=== PATIENT | female | born 1970 | race Two or more races ===

== ENCOUNTER 2016-10-12 17:53 | Emergency (ER) | payer OTHER ==
[~2016-10-12] VITALS: Ht 162.6 cm; Wt 63.5 kg
--- NOTE | 2016-10-12 18:50 | Emergency Room Report ---
History of Present Illness General Chief Complaint: Vaginal Source: Patient Present Illness HPI The patient is a 46-year-old female presenting for one week of vaginal itching and foul odor. Patient describes this as fishy. She does admit to a burning pain of the external vagina described as a 4-10. Pain does not radiate. She states that she has had bacterial vaginosis in the past and this feels similar. She denies any discharge, dysuria, hematuria, increased urinary frequency, flank pain, nausea, vomiting, fever, chills Allergies: Coded Allergies: No Known Allergies (Unverified , 10/12/16) Patient History Past Medical History: see triage record Pertinent Family History: none Last Menstrual Period: 10/02/16 Now: No Reviewed Nursing Documentation: PMH: Agreed, PSxH: Agreed Nursing Documentation-PMH Past Medical History: No Stated History Review of Systems All Other Systems: negative except mentioned in HPI Physical Exam Vital Signs Date Time Temp Pulse Resp B/P Pulse Ox O2 Delivery O2 Flow Rate FiO2 10/12/16 18:28 97.9 76 16 150/90 96 Room Air Sp02 EP Interpretation: reviewed, normal General Appearance: no apparent distress, alert, GCS 15, non-toxic Head: normocephalic, atraumatic Eyes: bilateral eye PERRL, bilateral eye normal inspection ENT: hearing grossly normal, normal pharynx, no angioedema, normal voice Gastrointestinal: normal bowel sounds, non tender, soft, non-distended, no guarding, no rebound Genitourinary: normal inspection, no CVA tenderness Musculoskeletal: back normal, gait/station normal, normal range of motion, non- tender Neurologic: alert, oriented x3, responsive, motor strength/tone normal, sensory intact, speech normal Psychiatric: judgement/insight normal, memory normal, mood/affect normal, no suicidal/homicidal ideation Skin: normal color, no rash, warm/dry, well hydrated Lymphatic: no adenopathy Medical Decision Making PA Attestation Dr. Jensen is my supervising physician. Patient management was discussed with my supervising physician Diagnostic Impression: Primary Impression: Bacterial vaginosis ER Course The patient is a 46-year-old female presenting for one week of vaginal itching and foul odor. Differential diagnosis considered but not limited to: UTI, BV, pyelonephritis, PID, PE: Vitals WNL. NAD. Abdomen: Normal appearance. Non distended. No ecchymosis. Normal BS. Non TTP. No McBurney point tenderness. No guarding. 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 The patient needs a referral to see [facility] by PMD. She will followup. The patient will be treated for BV and is discharged home. ER precautions are given Laboratory Tests Test 10/12/16 18:30 Urine Color Pale yellow Urine Appearance Clear Urine pH 6 (4.5-8.0) Urine Specific [place] 1.015 (1.005-1.035) Urine Protein Negative (NEGATIVE) Urine Glucose (UA) Negative (NEGATIVE) Urine Ketones Negative (NEGATIVE) Urine Occult Blood 3+ (NEGATIVE) H Urine Nitrite Negative (NEGATIVE) Urine Bilirubin Negative (NEGATIVE) Urine Urobilinogen Normal MG/DL (0.0-1.0) Urine Leukocyte Esterase Negative (NEGATIVE) Urine RBC 2-4 /HPF (0 - 2) H Urine WBC 0-2 /HPF (0 - 2) Urine Squamous Epithelial Cells Few /LPF (NONE/OCC) Urine Bacteria Few /HPF (NONE) Urine HCG, Qualitative Negative Lab Results Impression UA not consistent with UTI. Neg preg Last Vital Signs Date Time Temp Pulse Resp B/P Pulse Ox O2 Delivery O2 Flow Rate FiO2 10/12/16 18:28 97.9 76 16 150/90 96 Room Air Status: improved Disposition: HOME, SELF-CARE Condition: Improved Scripts Metronidazole* (FLAGYL*) 500 Mg Tablet 500 MG ORAL BID, #14 TAB 0 Refills Prov: JUVE HUMMEL 10/12/16 JUVE HUMMEL October 12, 2016 18:50
[2016-10-12 19:09] LABS: APPEARANCE,URINE CLEAR; KETONES,URINE NEGATIVE (NEGATIVE); LEUKOCYTE ESTERASE ,URINE NEGATIVE (NEGATIVE); NITRITE,URINE NEGATIVE (NEGATIVE); PH,URINE 6 (4.5-8.0); PROTEIN,URINE NEGATIVE (NEGATIVE); UROBILINOGEN,URINE NORMAL MG/DL (0.0-1.0)
[2016-10-12 19:14] LABS: BACTERIA,URINE FEW /HPF; SQUAMOUS EPITHELIAL CELL,UR FEW /LPF (NONE/OCC); WBC,URINE 0-2 /HPF (0 - 2)
[2016-10-12] MEDS ORDERED: METRONIDAZOLE500 MG ORAL (19:50)
[2016-10-12 19:55] VITALS: BP 134/84
== END 2016-10-12 19:55 | disposition home or self-care (01) ==
LOC: EMR 18:55
DX: N76.0 Acute vaginitis (principal)
CPT/HCPCS: 81003; 81025; 99283

== ENCOUNTER 2018-05-01 01:09 | Emergency (ER) | payer MEDICAID, OTHER ==
[~2018-05-01] VITALS: Ht 157.5 cm; Wt 68.0 kg
[~2018-05-01 01:09] MED LIST: METRONIDAZOLE500 MG ORAL
[2018-05-01] MEDS ORDERED: NKM (01:16)
[2018-05-01 01:20] VITALS: BP 134/79
[2018-05-01] MEDS ORDERED: NAPROXEN375 M2 ORAL (01:54)
--- NOTE | 2018-05-01 01:54 | Emergency Room Report ---
History of Present Illness General Chief Complaint: Neck Pain Source: Patient Present Illness HPI 48F c/o about one day neck stiffness. She thinks perhaps relating to sleeping/ pillow. She has had similar in the past but this is somewhat worse. Tried heating pad, hot shower. Still painful. No other problem, specifically: no sore throat, no chest pain, no sob, no fever, swallowing normally. PMH: none Meds: calcium vitamins Allergies: Coded Allergies: No Known Allergies (Unverified , 10/12/16) Patient History Last Menstrual Period: apr 06 Now: No Nursing Documentation-PMH Past Medical History: No Stated History Review of Systems Constitutional: Reports: no symptoms Eye: Reports: no symptoms ENT: Reports: no symptoms Respiratory: Reports: no symptoms Cardiovascular: Reports: no symptoms Gastrointestinal: Reports: no symptoms Genitourinary: Reports: no symptoms Musculoskeletal: Reports: muscle stiffness Skin: Reports: no symptoms Psychiatric: Reports: no symptoms Neurological: Reports: no symptoms Endocrine: Reports: no symptoms Hematologic/Lymphatic: Reports: no symptoms Allergic: Reports: no symptoms All Other Systems: negative except mentioned in HPI Physical Exam Vital Signs Date Time Temp Pulse Resp B/P (MAP) Pulse Ox O2 Delivery O2 Flow Rate FiO2 05/01/18 01:12 98.2 89 18 134/79 91 Room Air Sp02 EP Interpretation: reviewed, normal General Appearance: normal inspection, well appearing, no apparent distress, alert, GCS 15, non-toxic Head: normocephalic, atraumatic Eyes: bilateral eye normal inspection, bilateral eye PERRL, bilateral eye EOMI ENT: normal ENT inspection, hearing grossly normal, normal pharynx, no angioedema, normal voice, moist mucus membranes Neck: normal inspection, supple, no meningismus, no bony tend, other - holding head stiffly like torticollis Respiratory: normal inspection, lungs clear, normal breath sounds, no rhonchi, no respiratory distress, no retraction, no accessory muscle use, no wheezing Cardiovascular #1: normal inspection, regular rate, rhythm, no edema Gastrointestinal: normal inspection, normal bowel sounds, non tender, soft, no mass, non-distended Musculoskeletal: gait/station normal, normal range of motion Neurologic: normal inspection, alert, oriented x3, responsive, motor strength/ tone normal Psychiatric: normal inspection, judgement/insight normal, memory normal Suicide Risk Assessment: Suicidal Ideation: No Had intent to initiate attempt: No Pt's plan for suicide attempt: No Has means to complete attempt: No Skin: normal inspection, normal color, no rash, warm/dry Medical Decision Making Diagnostic Impression: Primary Impression: Torticollis, acute Last Vital Signs Date Time Temp Pulse Resp B/P (MAP) Pulse Ox O2 Delivery O2 Flow Rate FiO2 05/01/18 01:20 98.2 80 18 134/79 91 Room Air Status: improved Disposition: HOME, SELF-CARE Condition: Improved Scripts Naproxen* (NAPROXEN*) 375 Mg Tablet. 375 MG ORAL TWICE A DAY for 10 Days, #20 TAB Prov: Rm Cross M.D. 05/01/18 Referrals: NOT CHOSEN [facility]/,REFERRING (PCP) Patient Instructions: Acute Torticollis Rm Cross M.D. May 01, 2018 01:54
[2018-05-01] MEDS ORDERED: Ketorolac 60mg Inj IM ONE (02:00)
[2018-05-01] MEDS ORDERED: Acetaminophen 500mg (ES) tab ORAL ONE (02:00)
[2018-05-01 02:19] VITALS: BP 134/79
== END 2018-05-01 02:21 | disposition home or self-care (01) ==
LOC: EMR 01:37
DX: M43.6 Torticollis (principal)
CPT/HCPCS: 96372; 99283

== ENCOUNTER 2019-07-10 18:55 | Emergency (ER) | payer MEDICAID ==
[~2019-07-10] VITALS: Ht 167.6 cm; Wt 70.3 kg
[~2019-07-10 18:55] MED LIST changes: +NAPROXEN375 M2 ORAL; +NKM
[2019-07-10 19:30] VITALS: BP 145/93
--- NOTE | 2019-07-10 19:30 | NUR ---
ED Nurse Note: Pt ambulated to ED from [place] c/o abdominal pain x3 days, "twisting", N denies V/D, denies fever, VSS
--- NOTE | 2019-07-10 19:49 | Emergency Room Report ---
History of Present Illness General Chief Complaint: Abdominal Pain Source: Patient Present Illness HPI 49-year-old female presents with diffuse abdominal pain since last night. Pain is rated 8 out of 10. She took an ibuprofen which did not help. She reports nausea but denies any vomiting, diarrhea, constipation, urinary symptoms, fever , cold symptoms. Patient has not had pain like this before. Denies any surgeries other than . Allergies: Coded Allergies: No Known Allergies (Unverified , 10/12/16) Patient History Past Medical History: see triage record Last Menstrual Period: 06/12/19 Now: No Reviewed Nursing Documentation: PMH: Agreed; PSxH: Agreed Nursing Documentation-PMH Past Medical History: No Stated History Review of Systems All Other Systems: negative except mentioned in HPI Physical Exam Vital Signs Date Time Temp Pulse Resp B/P (MAP) Pulse Ox O2 Delivery O2 Flow Rate FiO2 07/10/19 19:03 98.1 80 19 145/93 (110) 100 Room Air Sp02 EP Interpretation: reviewed, normal General Appearance: normal inspection, well appearing, no apparent distress, alert, GCS 15, non-toxic Respiratory: chest non-tender, lungs clear, normal breath sounds, no respiratory distress Cardiovascular #1: normal peripheral pulses, regular rate, rhythm Gastrointestinal: normal inspection, normal bowel sounds, soft, no mass, no organomegaly, no guarding, no rebound, other - Mild tenderness to palpation to the left upper quadrant and right lower quadrant Genitourinary: no CVA tenderness Neurologic: alert, motor strength/tone normal, vp global III-XII nml as tested, oriented x3, sensory intact, speech normal Psychiatric: judgement/insight normal, mood/affect normal Skin: no rash, normal color, warm/dry Lymphatic: no adenopathy Medical Decision Making PA Attestation Dr. El is my supervising physician whom patient management and care has been discussed with. ER Course Pt. presents to the ED c/o diffuse abdominal pain since yesterday. Ddx considered but are not limited to appendicitis, gastroenteritis, diverticulitis, cholecystitis, UTI, ovarian torsion. Vital signs: are WNL, pt. is afebrile H&PE are most consistent with abdominal pain with unspecified etiology ORDERS: CBC, CMP, lipase, UA within normal limits CT abdomen pelvis shows no evidence of appendicitis or other acute findings ED INTERVENTIONS: Patient given IV morphine and Zofran DISCHARGE: At this time pt. is stable for d/c to home. Serial abdominal exams done patient is nontender, reports feeling a lot better with medications. Will provide printed patient care instructions, and any necessary prescriptions. Care plan and follow up instructions have been discussed with the patient prior to discharge. Laboratory Tests Test 07/10/19 20:15 White Blood Count 7.2 K/UL (4.8-10.8) Red Blood Count 5.00 M/UL (4.20-5.40) Hemoglobin 12.1 G/DL (12.0-16.0) Hematocrit 39.3 % (37.0-47.0) Mean Corpuscular Volume 79 FL (80-99) L Mean Corpuscular Hemoglobin 24.2 PG (27.0-31.0) L Mean Corpuscular Hemoglobin Concent 30.7 G/DL (32.0-36.0) L Red Cell Distribution Width 14.5 % (11.6-14.8) Platelet Count 245 K/UL (150-450) Mean Platelet Volume 8.1 FL (6.5-10.1) Neutrophils (%) (Auto) 75.2 % (45.0-75.0) H Lymphocytes (%) (Auto) 16.0 % (20.0-45.0) L Monocytes (%) (Auto) 5.7 % (1.0-10.0) Eosinophils (%) (Auto) 2.2 % (0.0-3.0) Basophils (%) (Auto) 0.8 % (0.0-2.0) Urine Color Pale yellow Urine Appearance Clear Urine pH 7 (4.5-8.0) Urine Specific [place] 1.010 (1.005-1.035) Urine Protein Negative (NEGATIVE) Urine Glucose (UA) Negative (NEGATIVE) Urine Ketones Negative (NEGATIVE) Urine Blood 3+ (NEGATIVE) H Urine Nitrite Negative (NEGATIVE) Urine Bilirubin Negative (NEGATIVE) Urine Urobilinogen Normal MG/DL (0.0-1.0) Urine Leukocyte Esterase Negative (NEGATIVE) Urine RBC 10-15 /HPF (0 - 2) H Urine WBC 0-2 /HPF (0 - 2) Urine Squamous Epithelial Cells Many /LPF (NONE/OCC) H Urine Bacteria Few /HPF (NONE) Urine HCG, Qualitative Negative (NEGATIVE) Sodium Level 140 MMOL/L (136-145) Potassium Level 3.8 MMOL/L (3.5-5.1) Chloride Level 106 MMOL/L (98-107) Carbon Dioxide Level 28 MMOL/L (21-32) Anion Gap 6 mmol/L (5-15) Blood Urea Nitrogen 14 mg/dL (7-18) Creatinine 0.7 MG/DL (0.55-1.30) Estimate Glomerular Filtration Rate > 60 mL/min (>60) Glucose Level 91 MG/DL (74-106) Calcium Level 9.1 MG/DL (8.5-10.1) Total Bilirubin 0.5 MG/DL (0.2-1.0) Aspartate Amino Transferase (AST) 14 U/L (15-37) L Alanine Aminotransferase (ALT) 25 U/L (12-78) Alkaline Phosphatase 73 U/L (46-116) Total Protein 7.9 G/DL (6.4-8.2) Albumin 3.9 G/DL (3.4-5.0) Globulin 4.0 g/dL Albumin/Globulin Ratio 1.0 (1.0-2.7) Lipase 283 U/L (73-393) Human Chorionic Gonadotropin, Qual Pending CT/MRI/US Diagnostic Results CT/MRI/US Diagnostic Results : Impression CT ABDOMEN & PELVIS Without Contrast, interpreted by radiologist, preliminary reading: Clear lung bases. Normal cardiac size. Normal liver, spleen, pancreas, bilateral kidneys and adrenal glands. Normal aorta. Fewlymph nodes scattered through the aortawith no significant lymphadenopathy. Normal small bowel. Fecal debris throughout the colon with fluid along the ascending portion and airfluid level, nonspecific. This maybe seen with sequela of enteritis/gastroenteritis. Normal appendix. Mild diverticulosiswith no signs of diverticulitis. Anteverted uteruswith a slightlybulbous appearance, cannot exclude uterine fibroids. Left ovarian cyst measuring 2.6 x 2.5 cm. Remainder of the pelvic structures unremarkable. Mild degenerative disease of the distal hemithorax. Last Vital Signs Date Time Temp Pulse Resp B/P (MAP) Pulse Ox O2 Delivery O2 Flow Rate FiO2 07/10/19 19:03 98.1 80 19 145/93 (110) 100 Room Air Disposition: HOME, SELF-CARE Condition: Stable Scripts Famotidine* (Pepcid 20mg tablet*) 20 Mg Tablet 20 MG ORAL DAILY, #30 TAB 0 Refills Prov: [place] Colin N. P.A. 07/10/19 Acetaminophen* (TYLENOL EXTRA STRENGTH*) 500 Mg Tablet 500 MG ORAL Q8H PRN for Prn Headache/Temp > 101, #30 TAB 0 Refills Prov: [place] Colin P.AMason 07/10/19 [place] Colin PMasonAMason Jul 10, 2019 19:49
[2019-07-10] MEDS ORDERED: Morphine Sulfate 4mg/ml Inj (IV USE ONLY) IVP ONE (20:00)
[2019-07-10 20:34] LABS: BASOPHILS % (AUTO) 0.8 % (0.0-2.0); EOSINOPHILS % (AUTO) 2.2 % (0.0-3.0); HEMATOCRIT 39.3 % (37.0-47.0); HEMOGLOBIN 12.1 G/DL (12.0-16.0); MEAN CORPUSCULAR VOLUME 79 FL (80-99); MONOCYTES % (AUTO) 5.7 % (1.0-10.0); NEUTROPHILS % (AUTO) 75.2 % (45.0-75.0); PLATELET COUNT 245 K/UL (150-450); RED CELL DISTRIBUTION WIDTH 14.5 % (11.6-14.8); WHITE BLOOD COUNT 7.2 K/UL (4.8-10.8)
[2019-07-10 20:36] LABS: APPEARANCE,URINE CLEAR; BILIRUBIN, URINE NEGATIVE (NEGATIVE); COLOR,URINE PALE YELLOW; GLUCOSE, URINE (UA) NEGATIVE (NEGATIVE); KETONES,URINE NEGATIVE (NEGATIVE); LEUKOCYTE ESTERASE ,URINE NEGATIVE (NEGATIVE); NITRITE,URINE NEGATIVE (NEGATIVE); PH,URINE 7 (4.5-8.0); PROTEIN,URINE NEGATIVE (NEGATIVE); UROBILINOGEN,URINE NORMAL MG/DL (0.0-1.0)
[2019-07-10 20:48] LABS: ANION GAP 6 mmol/L (5-15); BLOOD UREA NITROGEN 14 mg/dL (7-18); CALCIUM 9.1 MG/DL (8.5-10.1); CARBON DIOXIDE 28 MMOL/L (21-32); CHLORIDE 106 MMOL/L (98-107); CREATININE 0.7 MG/DL (0.55-1.30); POTASSIUM 3.8 MMOL/L (3.5-5.1); SODIUM 140 MMOL/L (136-145)
[2019-07-10 20:56] LABS: ALANINE AMINOTRANSFERASE 25 U/L (12-78); ALBUMIN 3.9 G/DL (3.4-5.0); ALKALINE PHOSPHATASE 73 U/L (46-116); ASPARTATE AMINO TRANSFERASE 14 U/L (15-37); BILIRUBIN,TOTAL 0.5 MG/DL (0.2-1.0)
--- NOTE | 2019-07-10 21:37 | Diagnostic Imaging Report ---
Indication: Right flank pain Technique: Spiral acquisitions obtained through the abdomen and pelvis. No oral or IV contrast utilized, per urinary stone protocol. Multiplanar reconstructions were generated. Total dose length product 883 mGycm. CTDIvol(s) 16 mGy. Dose reduction achieved using automated exposure control Comparison: none Findings: No renal or ureteral calculi, hydronephrosis, or hydroureter demonstrated. Lack of IV contrast limits assessment of the renal parenchyma. No gross renal parenchymal mass or cyst is evident. Unremarkable bladder. Lack of IV contrast limits assessment of the other solid organs. The liver, bladder, bile ducts, pancreas, spleen, adrenals are unremarkable. The uterus is prominent without definite discrete abnormality. No pelvic mass or adenopathy. The appendix is normal. No evidence of colonic diverticulosis or diverticulitis. No small bowel distention. No free or loculated intraperitoneal gas or fluid is evident. Distal esophagus, stomach, duodenum are unremarkable. The included lung bases are clear. The bones are unremarkable. Impression: No evidence of obstructive uropathy, urinary stone disease, or other acute or significant abnormality This agrees with the preliminary interpretation provided overnight by [facility] teleradiology service. The CT scanner at [facility] is accredited by the [employer] and the scans are performed using protocols designed to limit radiation exposure to as low as reasonably achievable to attain images of sufficient resolution adequate for diagnostic evaluation.
[2019-07-10] MEDS ORDERED: FAMOTIDINE20 MG ORAL (21:47)
[2019-07-10] MEDS ORDERED: TYLENOL EXTRA500 MG ORAL (21:47)
[2019-07-10 22:05] VITALS: BP 145/93
--- NOTE | 2019-07-10 22:05 | NUR ---
ER DISCHARGE NOTE: Patient is cleared to be discharged per ERMD, pt is aox4, on room air, with stable vital signs. pt was given dc and prescription instructions, pt was able to verbalize understanding, pt id band and iv site removed without complications. pt is able to ambulate with steady gait. pt took all belongings.ER
== END 2019-07-10 22:05 | disposition home or self-care (01) ==
LOC: EMR 19:40
DX: R10.9 Unspecified abdominal pain (principal); K57.90 Diverticulosis of intestine, part unspecified, without perforation or abscess without bleeding; N83.202 Unspecified ovarian cyst, left side
CPT/HCPCS: 36415; 74176; 80053; 81003; 81025; 83690; 85025; 96374; 96375; J2270; J2405; Z7502; 99284

== ENCOUNTER 2019-07-22 21:22 | Emergency (ER) | payer MEDICAID ==
[~2019-07-22] VITALS: Ht 162.6 cm; Wt 66.2 kg
[~2019-07-22 21:22] MED LIST changes: +FAMOTIDINE20 MG ORAL; +TYLENOL EXTRA500 MG ORAL
[2019-07-22 21:50] VITALS: BP 145/99
--- NOTE | 2019-07-22 21:50 | NUR ---
ED Nurse Note: Pt walked into ED from home for c/o heavy bleeding and worsening abdominal pain. Pt states she has been on her menstrual period for the past eight days and usually the bleeding and pain stops around 5 days. Pt reports heavier bleeding and abdominal pain that is aching and cramping which is not normal for her. Pt is aaox4, no acute distress noted.
--- NOTE | 2019-07-22 21:51 | Emergency Room Report ---
History of Present Illness General Chief Complaint: Abdominal Pain Source: Patient Present Illness [facility] This a 49-year-old female with no past medical history. She is presents with chief complaint of pelvic pain and vaginal bleeding. She said that she had her menstruation 8 days ago. It lasted 3 to 4 days and it stopped. And then it came back again. Her last menstruation was 3 months ago. The woman and her family really undergoes menopause at 52. Patient denies dysuria frequency. No hematuria. Pain is crampy in nature. Localized to the lower abdominal pelvic area. No fever chills but no nausea no vomiting. She was here on the and had blood work was unremarkable. CT scan was negative. Allergies: Coded Allergies: No Known Allergies (Unverified , 10/12/16) Patient History Past Medical History: see triage record, old chart reviewed Past Surgical History: none Pertinent Family History: none Social History: Denies: smoking Last Menstrual Period: now Now: No Immunizations: other Reviewed Nursing Documentation: PMH: Agreed; PSxH: Agreed Nursing Documentation-PMH Past Medical History: No Stated History Review of Systems Eye: Denies: eye pain, blurred vision ENT: Denies: ear pain, nose congestion, throat swelling Respiratory: Denies: cough, shortness of breath Cardiovascular: Denies: chest pain, palpitations Gastrointestinal: Reports: abdominal pain; Denies: diarrhea, nausea, vomiting Musculoskeletal: Denies: back pain, joint pain Skin: Denies: rash Neurological: Denies: headache, numbness Endocrine: Denies: increased thirst, increased urine Hematologic/Lymphatic: Denies: easy bruising All Other Systems: negative except mentioned in HPI Physical Exam Vital Signs Date Time Temp Pulse Resp B/P (MAP) Pulse Ox O2 Delivery O2 Flow Rate FiO2 07/22/19 21:32 98.2 66 18 145/99 (114) 99 Room Air Vitals with high blood pressure Sp02 EP Interpretation: reviewed, normal General Appearance: well appearing, no apparent distress, alert Head: normocephalic, atraumatic Eyes: bilateral eye PERRL, bilateral eye EOMI ENT: hearing grossly normal, normal pharynx Neck: full range of motion, supple, no meningismus Respiratory: chest non-tender, lungs clear, normal breath sounds Cardiovascular #1: regular rate, rhythm, no murmur Gastrointestinal: normal bowel sounds, no mass, no organomegaly, no bruit, non- distended, tenderness - Mild, suprapubic tenderness Musculoskeletal: back normal, normal range of motion, gait/station normal Psychiatric: mood/affect normal Medical Decision Making Diagnostic Impression: Primary Impression: Perimenopause Additional Impression: UTI (urinary tract infection) Qualified Codes: N30.00 - Acute cystitis without hematuria ER Course With abdominal pain. Pain is to the suprapubic area. No evidence of infection. Sound like she is going through perimenopause. No evidence of any acute abdomen. Abdominal exam is benign. I see no need for repeat CT scan. Will discharge home with reassurance. Last Vital Signs Date Time Temp Pulse Resp B/P (MAP) Pulse Ox O2 Delivery O2 Flow Rate FiO2 07/22/19 21:32 98.2 66 18 145/99 (114) 99 Room Air Status: improved Disposition: HOME, SELF-CARE Condition: Stable Scripts Nitrofurantoin Monohyd/M-Cryst (Nitrofurantoin Banks-Mcr 100 mg) 100 Mg Capsule 100 MG ORAL Q12H, #14 CAP Prov: Luis Hernandez MD 07/22/19 Ibuprofen* (MOTRIN*) 600 Mg Tablet 600 MG ORAL THREE TIMES A DAY, #30 TAB 0 Refills Prov: Luis Hernandez MD 07/22/19 Additional Instructions: Follow-up with your doctor in 7 days. Return if symptoms worsen. Luis Hernandez MD Jul 22, 2019 21:51
[2019-07-22] MEDS ORDERED: Ketorolac 60mg Inj IM ONE (22:00)
[2019-07-22 22:04] LABS: APPEARANCE,URINE SLIGHTLY CLOUDY; BILIRUBIN, URINE NEGATIVE (NEGATIVE); COLOR,URINE PALE YELLOW; GLUCOSE, URINE (UA) NEGATIVE (NEGATIVE); KETONES,URINE NEGATIVE (NEGATIVE); LEUKOCYTE ESTERASE ,URINE 1+ (NEGATIVE); NITRITE,URINE NEGATIVE (NEGATIVE); PH,URINE 5 (4.5-8.0); PROTEIN,URINE 1+ (NEGATIVE); UROBILINOGEN,URINE NORMAL MG/DL (0.0-1.0)
[2019-07-22] MEDS ORDERED: MACROBID100 MG ORAL (22:30)
[2019-07-22] MEDS ORDERED: IBUPROFEN600 MG ORAL (22:30)
[2019-07-22 22:40] VITALS: BP 134/85
--- NOTE | 2019-07-22 22:40 | NUR ---
ER DISCHARGE NOTE: Patient is cleared to be discharged per ERMD, pt is aox4, on room air, with stable vital signs. pt was given dc and prescription instructions, pt was able to verbalize understanding, pt id band removed. pt is able to ambulate with steady gait. pt took all belongings.
== END 2019-07-22 22:40 | disposition home or self-care (01) ==
LOC: EMR 22:06
DX: Z78.0 Asymptomatic menopausal state (principal); N30.00 Acute cystitis without hematuria
CPT/HCPCS: 81003; 96372; Z7502; 99283

== ENCOUNTER 2019-09-03 11:55 | Emergency (ER) | payer MEDICAID, OTHER ==
[~2019-09-03] VITALS: Ht 162.6 cm; Wt 63.5 kg
[~2019-09-03 11:55] MED LIST changes: +IBUPROFEN600 MG ORAL; +MACROBID100 MG ORAL
[2019-09-03 12:41] VITALS: BP 152/101
--- NOTE | 2019-09-03 12:43 | NUR ---
ED Nurse Note: pt walked in to ER from home due to Rt shoulder pain 11/07 x4-5 days without injury. pt aao x4 and ambulatory. skin clean and intact. calm but grimacing for right shoulder pain. no cardiac or pulmonary distress noted at this time.
--- NOTE | 2019-09-03 13:19 | Emergency Room Report ---
History of Present Illness General Chief Complaint: Pain Source: Patient (Dann Cerna) Present Illness HPI 49-year-old Farsi speaking female with no significant past medical history here complaining of several days of generalized body ache as well as 2 days of right- sided neck and shoulder pain. Denies any tingling numbness or trauma. Denies fever and chills shortness of breath, chest pain, headache and dizziness. Denies any cough or congestion. Reports that for the past 2 days she also has been feeling anxious, palpitation, and epigastric pain. Denies any diarrhea, nausea vomiting. Denies any recent travel. Denies . Reports that she has history of anxiety and acid reflux. (Dann Cerna) Allergies: Coded Allergies: No Known Allergies (Unverified , 10/12/16) COVID-19 Screening Contact w/high risk pt: No Recent Travel to affected area: No Experienced COVID-19 symptoms?: No (Dann Cerna) Patient History Past Medical History: see triage record Past Surgical History: none Pertinent Family History: none Now: No Immunizations: UTD Reviewed Nursing Documentation: PMH: Agreed; PSxH: Agreed (Dann Cerna) Nursing Documentation-PMH Past Medical History: No Stated History (Dann Cerna) Review of Systems All Other Systems: negative except mentioned in HPI (Dann Cerna) Physical Exam Vital Signs Date Time Temp Pulse Resp B/P (MAP) Pulse Ox O2 Delivery O2 Flow Rate FiO2 09/03/19 12:15 98.4 71 16 152/101 (118) 99 Room Air Sp02 EP Interpretation: reviewed, normal General Appearance: no apparent distress, alert, GCS 15, non-toxic Head: normocephalic, atraumatic Eyes: bilateral eye normal inspection, bilateral eye PERRL ENT: hearing grossly normal, normal pharynx, no angioedema, normal voice Neck: full range of motion, supple/symm/no masses Respiratory: chest non-tender, lungs clear, normal breath sounds, no rhonchi, no wheezing, speaking full sentences Cardiovascular #1: regular rate, rhythm, no edema, no murmur Gastrointestinal: non tender, soft Rectal: deferred Musculoskeletal: back normal, normal range of motion, non-tender, other - No impingement sign Neurologic: alert, motor strength/tone normal, oriented x3, sensory intact, responsive, speech normal Psychiatric: judgement/insight normal, memory normal, mood/affect normal, no suicidal/homicidal ideation Skin: no rash Lymphatic: no adenopathy (Dann Cerna) Medical Decision Making PA Attestation All diagnoses and treatment plans were reviewed and discussed with my supervising physician Dr. Colindres (Dann Cerna) Diagnostic Impression: Primary Impression: Body aches Additional Impressions: URI (upper respiratory infection) Shoulder strain ER Course 49-year-old Farsi speaking female with no significant past medical history here complaining of several days of generalized body ache as well as 2 days of right- sided neck and shoulder pain. Denies any tingling numbness or trauma. Denies fever and chills shortness of breath, chest pain, headache and dizziness. Denies any cough or congestion. Reports that for the past 2 days she also has been feeling anxious, palpitation, and epigastric pain. Denies any diarrhea, nausea vomiting. Denies any recent travel. Denies . Reports that she has history of anxiety and acid reflux. Ddx considered but are not limited to: Coronavirus, strep pharyngitis, URI, tonsillitis, peritonsillar abscess, influneza Vital signs: are WNL, pt. is afebrile H&PE are most consistent with: URI, body aches, shoulder strain, gastritis ORDERS: EKG, chest x-ray, omeprazole, Tylenol, Robaxin, lidocaine patch ED INTERVENTIONS: None required at this time. DISCHARGE: At this time pt. is stable for d/c to home. Will provide printed patient care instructions, and any necessary prescriptions. Care plan and follow up instructions have been discussed with the patient prior to discharge. Take medication as directed, follow-up with your primary doctor, you need to stay home for self quarantine due to Covid 19 precautions for 14 days. Follow- up with primary care doctor, referral to java programmer analyst may be needed. Also manage her anxiety follow-up with psychiatrist. (Dann Cerna) EKG Diagnostic Results Rate: normal Rhythm: NSR ST Segments: no acute changes Other Impression No acute ST changes (Dann Cerna) Chest X-Ray Diagnostic Results Chest X-Ray Diagnostic Results : Chest X-Ray Ordered: Yes # of Views/Limited/Complete: 1 View Indication: Other - Palpitation EP Interpretation: Yes YULI Xray: Interpretation reviewed, by supervising MD, and agrees with findings. Interpretation: no consolidation, no effusion, no pneumothorax Impression: No acute disease Electronically Signed by: Dann Allred PA-C (Dann Cerna) Chest X-Ray Diagnostic Results : Electronically Signed by: Watson Hoff documentation of Xray reviewed by me and is accurate, Clint Colindres MD (Clint Colindres MD) Last Vital Signs Date Time Temp Pulse Resp B/P (MAP) Pulse Ox O2 Delivery O2 Flow Rate FiO2 09/03/19 12:41 98.4 80 16 152/101 99 Room Air (Dann Cerna) Disposition: HOME, SELF-CARE Condition: Stable Scripts Omeprazole (OMEPRAZOLE) 20 Mg Tablet.dr 20 MG ORAL DAILY, #30 TAB Prov: Dann Cerna 09/03/19 Lidocaine Patch* (Lidoderm Patch*) 1 Each Adh..patch 1 PATCH TOPIC DAILY, #30 PATCH Patch(es) may remain in place for up to 12 hours in any 24-hour period. Prov: Dann Cerna 09/03/19 Methocarbamol* (ROBAXIN-500*) 500 Mg Tablet 500 MG ORAL TID PRN for For Pain, #15 TAB 0 Refills Prov: Dann Cerna 09/03/19 Acetaminophen* (TYLENOL EXTRA STRENGTH*) 500 Mg Tablet 500 MG ORAL Q8H PRN for Prn Headache/Temp > 101, #30 TAB 0 Refills Prov: Dann Cerna 09/03/19 Referrals: ADEN LORENZO (PCP) Patient Instructions: Muscle Strain, [id number], Upper Respiratory Infection , Adult, [id number] Additional Instructions: Take medication as directed, follow-up with your primary doctor, you need to stay home for self quarantine due to Covid 19 precautions for 14 days. Follow- up with primary care doctor for referral to java programmer analyst if palpitation continues. If worsening symptom return to the emergency Dann Cerna Sep 03, 2019 13:19 Clint Colindres MD Sep 03, 2019 23:14
[2019-09-03] MEDS ORDERED: ROBAXIN-500MG ORAL (13:22)
[2019-09-03] MEDS ORDERED: LIDODERM700 M1 TOPIC (13:22)
[2019-09-03] MEDS ORDERED: TYLENOL EXTRA500 MG ORAL (13:22)
[2019-09-03] MEDS ORDERED: OMEPRAZOLE20 M3 ORAL (13:22)
[2019-09-03 13:34] VITALS: BP 149/95
--- NOTE | 2019-09-03 13:34 | NUR ---
ED Nurse Note: Pt cleared by health care Provider for discharge. DC instructions/prescription was given and explained to pt in Farsi and verbalized understanding of teachings. All medical deviecs such as ID band removed. Pt is AAO x4, ambulatory and left with all personal belongings.
--- NOTE | 2019-09-04 10:24 | Diagnostic Imaging Report ---
Indication: Chest pain Technique: One view of the chest Comparison: none Findings: Lungs and pleural spaces are clear. Heart size is normal. Impression: No acute process
== END 2019-09-03 13:38 | disposition home or self-care (01) ==
LOC: EMR 12:43
DX: R52 Pain, unspecified (principal); J06.9 Acute upper respiratory infection, unspecified; S46.911A Strain of unspecified muscle, fascia and tendon at shoulder and upper arm level, right arm, initial encounter; F41.9 Anxiety disorder, unspecified; X58.XXXA Exposure to other specified factors, initial encounter; Y92.9 Unspecified place or not applicable
CPT/HCPCS: 71045; 93005; Z7502; 99283

== ENCOUNTER 2019-09-12 10:50 | Emergency (ER) | payer OTHER ==
[~2019-09-12] VITALS: Ht 162.6 cm; Wt 65.8 kg
[~2019-09-12 10:50] MED LIST changes: +LIDODERM700 M1 TOPIC; +OMEPRAZOLE20 M3 ORAL; +ROBAXIN-500MG ORAL
[2019-09-12 11:13] VITALS: BP 137/81
--- NOTE | 2019-09-12 11:22 | Emergency Room Report ---
History of Present Illness General Chief Complaint: General Complaint Source: Patient Present Illness HPI Disclaimer: Please note that this report is being documented using ErlyON technology. This can lead to erroneous entry secondary to incorrect interpretation by the dictating instrument. HPI: 49-year-old female with no reported medical history presents for evaluation of myalgias. Patient states over the past 2 weeks she has had body wide myalgias worse on the right side of the neck and the right shoulder. No injury was reported. Also complaining of pain in the hands, thighs, back, overall diffuse body aches. Symptoms seem to be worse at night while laying flat. She also complaining of some shortness of breath at night that is intermittent. She reports worsening anxiety during these periods. Denies any history of heartburn but has been taking omeprazole since her last visit without significant improvement. She is also started metoprolol by her PMD -no improvement. Denies any fever, chills, sore throat, abdominal pain, vomiting, diarrhea. No known sick contacts. No history of recent travel, immobilization , surgery, cancer or exogenous hormone use. PMH: Denies PSH: Reviewed Allergies: Denies Social Hx: Denies Allergies: Coded Allergies: No Known Allergies (Unverified , 10/12/16) COVID-19 Screening Contact w/high risk pt: No Recent Travel to affected area: No Experienced COVID-19 symptoms?: No Patient History Last Menstrual Period: 08/14/2019 Now: No Nursing Documentation-PMH Hx Hypertension: Yes Review of Systems All Other Systems: negative except mentioned in HPI Physical Exam Vital Signs Date Time Temp Pulse Resp B/P (MAP) Pulse Ox O2 Delivery O2 Flow Rate FiO2 09/12/19 11:00 97.9 64 18 137/81 (99) 97 Room Air General: Awake and alert, no acute distress HEENT: NC/AT. EOMI. Cardiovascular: RRR. S1 and S2 normal. No murmur appreciated Resp: Normal work of breathing. No cough, wheezing or crackles appreciated Abdomen: Abdomen is soft, nondistended. Nontender Skin: Intact. No abrasions, laceration or rash over the exposed skin MSK: Normal tone and bulk. Moving all extremities. No obvious deformity. Diffuse tenderness palpation over the major muscle groups Neuro: Awake and alert. Mentating appropriately. Back/Spine: No midline tenderness in the cervical, thoracic or lumbosacral spine. Moderate right-sided paraspinal tenderness in the cervical and upper thoracic spine. Medical Decision Making Diagnostic Impression: Primary Impression: Myalgia Additional Impressions: Viral syndrome Suspected 2019 novel coronavirus infection ER Course 49-year-old female presents for evaluation of diffuse myalgias, nighttime shortness of breath and worsening anxiety over the past 2 weeks. Differential includes is not limited to viral syndrome, pneumonia, bronchitis, GERD, osteoarthritis, rheumatoid arthritis, polyarthritis, COVID-19 infection, arrhythmia, ACS, PE. Patient is PERC negative. Will obtain EKG, chest x-ray, broad labs including cardiac enzymes Laboratory Tests Test 09/12/19 12:00 White Blood Count 7.6 K/UL (4.8-10.8) Red Blood Count 4.68 M/UL (4.20-5.40) Hemoglobin 11.3 G/DL (12.0-16.0) L Hematocrit 35.1 % (37.0-47.0) L Mean Corpuscular Volume 75 FL (80-99) L Mean Corpuscular Hemoglobin 24.1 PG (27.0-31.0) L Mean Corpuscular Hemoglobin Concent 32.2 G/DL (32.0-36.0) Red Cell Distribution Width 12.9 % (11.6-14.8) Platelet Count 232 K/UL (150-450) Mean Platelet Volume 6.7 FL (6.5-10.1) Neutrophils (%) (Auto) 67.9 % (45.0-75.0) Lymphocytes (%) (Auto) 22.6 % (20.0-45.0) Monocytes (%) (Auto) 5.0 % (1.0-10.0) Eosinophils (%) (Auto) 3.3 % (0.0-3.0) H Basophils (%) (Auto) 1.1 % (0.0-2.0) Sodium Level 141 MMOL/L (136-145) Potassium Level 4.4 MMOL/L (3.5-5.1) Chloride Level 105 MMOL/L (98-107) Carbon Dioxide Level 26 MMOL/L (21-32) Anion Gap 10 mmol/L (5-15) Blood Urea Nitrogen 16 mg/dL (7-18) Creatinine 0.8 MG/DL (0.55-1.30) Estimated Glomerular Filtration Rate > 60 mL/min (>60) Glucose Level 94 MG/DL (74-106) Calcium Level 8.8 MG/DL (8.5-10.1) Total Bilirubin 0.4 MG/DL (0.2-1.0) Aspartate Amino Transferase (AST) 21 U/L (15-37) Alanine Aminotransferase (ALT) 31 U/L (12-78) Alkaline Phosphatase 68 U/L (46-116) Troponin I 0.014 ng/mL (0.000-0.056) Total Protein 7.3 G/DL (6.4-8.2) Albumin 3.9 G/DL (3.4-5.0) Globulin 3.4 g/dL Albumin/Globulin Ratio 1.1 (1.0-2.7) EKG Diagnostic Results EKG Time: 11:20 Rate: normal Rhythm: NSR ST Segments: no acute changes Other Impression Sinus rhythm, normal axis, normal intervals, no ST segment changes Rhythm Strip Diag. Results Rhythm Strip Time: 11:20 EP Interpretation: yes Rate: 60 Rhythm: NSR, no PVC's, no ectopy Chest X-Ray Diagnostic Results Chest X-Ray Diagnostic Results : Chest X-Ray Ordered: Yes # of Views/Limited/Complete: 1 View Indication: Shortness of Breath EP Interpretation: Yes Interpretation: no consolidation, no effusion, no pneumothorax, no acute cardiopulmonary disease Impression: No acute disease Electronically Signed by: Electronically signed by Dr. Jann Mina Reevaluation Time: 13:06 Last Vital Signs Date Time Temp Pulse Resp B/P (MAP) Pulse Ox O2 Delivery O2 Flow Rate FiO2 09/12/19 11:00 97.9 64 18 137/81 (99) 97 Room Air Reevaluation Impression EKG, chest x-ray and labs have returned within normal limits. The patient is very reassured by this. Likely a viral syndrome and will continue to isolate per CDC and health department guidelines. We will continue NSAIDs for myalgias. Discussed reasons to return to the emergency department and need to follow-up with her PMD. She understands and agrees with the treatment plan will be discharged home. Disposition: HOME, SELF-CARE Condition: Stable Jann Mina MD Sep 12, 2019 11:22
[2019-09-12 12:33] LABS: BASOPHILS % (AUTO) 1.1 % (0.0-2.0); EOSINOPHILS % (AUTO) 3.3 % (0.0-3.0); HEMATOCRIT 35.1 % (37.0-47.0); HEMOGLOBIN 11.3 G/DL (12.0-16.0); LYMPHOCYTES % (AUTO) 22.6 % (20.0-45.0); MEAN CORPUSCULAR VOLUME 75 FL (80-99); NEUTROPHILS % (AUTO) 67.9 % (45.0-75.0); PLATELET COUNT 232 K/UL (150-450); RED BLOOD COUNT 4.68 M/UL (4.20-5.40); RED CELL DISTRIBUTION WIDTH 12.9 % (11.6-14.8); WHITE BLOOD COUNT 7.6 K/UL (4.8-10.8)
--- NOTE | 2019-09-12 12:37 | Diagnostic Imaging Report ---
Indication: Shortness of breath Technique: One view of the chest Comparison: none Findings: Lungs and pleural spaces are clear. Heart size is normal. No significant change Impression: No acute process
[2019-09-12 12:56] LABS: ANION GAP 10 mmol/L (5-15); BLOOD UREA NITROGEN 16 mg/dL (7-18); CALCIUM 8.8 MG/DL (8.5-10.1); CARBON DIOXIDE 26 MMOL/L (21-32); CHLORIDE 105 MMOL/L (98-107); CREATININE 0.8 MG/DL (0.55-1.30); POTASSIUM 4.4 MMOL/L (3.5-5.1); SODIUM 141 MMOL/L (136-145)
[2019-09-12 13:00] LABS: ALANINE AMINOTRANSFERASE 31 U/L (12-78); ALBUMIN 3.9 G/DL (3.4-5.0); ALBUMIN/GLOBULIN RATIO 1.1 (1.0-2.7); ALKALINE PHOSPHATASE 68 U/L (46-116); ASPARTATE AMINO TRANSFERASE 21 U/L (15-37); BILIRUBIN,TOTAL 0.4 MG/DL (0.2-1.0)
[2019-09-12 13:25] VITALS: BP 134/85
== END 2019-09-12 13:25 | disposition home or self-care (01) ==
LOC: EMR 12:00
DX: M79.10 Myalgia, unspecified site (principal); B34.9 Viral infection, unspecified; I10 Essential (primary) hypertension
CPT/HCPCS: 36415; 71045; 80053; 84484; 85025; 93005; Z7502; 99283

== ENCOUNTER 2020-05-23 11:39 | Emergency (ER) | payer OTHER ==
[~2020-05-23] VITALS: Ht 162.6 cm; Wt 72.6 kg
[2020-05-23 11:50] VITALS: BP 144/83
--- NOTE | 2020-05-23 11:50 | NUR ---
ED Nurse Note: walked in to ed c/o abd pain and nvd onset 2 days ago. pt reports 6 episodes of diarrhea today. pt states being tested positive for covid 2 days ago. denies sob or chest pain at this time. no fever or cough at triage. vss, nad, aaox4, ambulatory, droplet precaution observed, ermd at bedside, on equipment monitor phototypesetting.
--- NOTE | 2020-05-23 13:12 | Emergency Room Report ---
History of Present Illness General Chief Complaint: Abdominal Pain Source: Patient Present Illness HPI Disclaimer: Please note that this report is being documented using DRAGON technology. This can lead to erroneous entry secondary to incorrect interpretation by the dictating instrument. HPI: 50-year-old female presents for evaluation of abdominal pain nausea and vomiting. Patient was diagnosed with COVID-19 last week at outpatient testing facility. She has been only complaining of myalgias for a few days and denies fever, chills, cough, shortness of breath. This morning she awoke with abdominal cramping and 6 episodes of nonbloody diarrhea. She also noted 2 episodes of emesis and decreased appetite. She reports nausea. Is still able to hydrate orally. Today she again denies fever, chills, weakness. PMH: Reviewed PSH: Reviewed Allergies: Reviewed Social Hx: Reviewed Allergies: Coded Allergies: No Known Allergies (Unverified , 10/12/16) COVID-19 Screening Contact w/high risk pt: No Recent Travel to affected area: No Experienced COVID-19 symptoms?: Yes COVID-19 Testing performed [employer]: Yes COVID-19 Screening: Positive COVID-19 COVID-19 Testing Source: 2 days ago Nursing Documentation-PMH Hx Hypertension: Yes Review of Systems All Other Systems: negative except mentioned in HPI Physical Exam Vital Signs Date Time Temp Pulse Resp B/P (MAP) Pulse Ox O2 Delivery O2 Flow Rate FiO2 05/23/20 11:46 98.4 84 20 144/83 (103) 100 Room Air General: Awake and alert, no acute distress HEENT: NC/AT. EOMI. moist mucous membranes. Cardiovascular: RRR. S1 and S2 normal. No murmur appreciated. Capillary refill less than 2 seconds. Resp: Normal work of breathing. No cough, wheezing or crackles appreciated Abdomen: Abdomen is soft, nondistended. Nontender, no masses, no rebound. Skin: Intact. No abrasions, laceration or rash over the exposed skin MSK: Normal tone and bulk. Moving all extremities. No obvious deformity. Neuro: Awake and alert. Mentating appropriately. Medical Decision Making Diagnostic Impression: Primary Impression: Vomiting and diarrhea Additional Impression: Viral gastroenteritis ER Course 50-year-old female presents for evaluation of nausea vomiting and diarrhea beginning this morning. Recently tested positive for COVID-19 virus. Suspect a viral syndrome though pancreatitis, appendicitis, food poisoning, gastritis, inflammatory bowel disease, diverticulitis, nephrolithiasis also on the differential. Patient's belly is benign, no masses and she is overall well- appearing. Patient was given oral Zofran is in eating and drinking at bedside without difficulty. She does not appear dehydrated clinically and do not believe she requires emergent labs or imaging at this time. Will follow up with her PMD. Discharged with Zofran, Pepcid, loperamide. Instructed to return with new or worsening symptoms. She understands and agrees with this treatment plan. Last Vital Signs Date Time Temp Pulse Resp B/P (MAP) Pulse Ox O2 Delivery O2 Flow Rate FiO2 05/23/20 11:46 98.4 84 20 144/83 (103) 100 Room Air Disposition: HOME, SELF-CARE Condition: Stable Scripts Loperamide Hcl (DIAMODE) 2 Mg Tablet 2 MG PO BID, #20 TAB Prov: Jann Mina MD 05/23/20 Famotidine* (Pepcid 20mg tablet*) 20 Mg Tablet 20 MG ORAL DAILY for Gerd, #30 TAB 0 Refills Prov: Jann Mina MD 05/23/20 Ondansetron Odt* (ZOFRAN ODT*) 4 Mg Tab.rapdis 4 MG BC EVERY 6 HOURS PRN for Nausea & Vomiting, #20 TAB 0 Refills Prov: Jann Mina MD 05/23/20 Referrals: ADEN LORENZO (PCP) Jann Mina MD May 23, 2020 13:12
[2020-05-23 14:00] VITALS: BP 139/91
--- NOTE | 2020-05-23 14:00 | NUR ---
ER DISCHARGE NOTE: Patient is cleared to be discharged per ERMD, pt is aox4, on room air, with stable vital signs. pt was given dc and prescription instructions, pt was able to verbalize understanding, pt id band removed without complications. pt is able to ambulate with steady gait. pt took all belongings.
[2020-05-23] MEDS ORDERED: FAMOTIDINE20 MG ORAL (14:14)
[2020-05-23] MEDS ORDERED: DIAMODE2 MG PO (14:14)
[2020-05-23] MEDS ORDERED: ONDANSETRON ODT4 MG BC (14:14)
== END 2020-05-23 14:00 | disposition home or self-care (01) ==
LOC: EMR 12:30
DX: U07.1 COVID-19 (principal); K52.9 Noninfective gastroenteritis and colitis, unspecified; R11.10 Vomiting, unspecified; I10 Essential (primary) hypertension
CPT/HCPCS: 99283

== ENCOUNTER 2020-05-31 17:08 | Emergency (ER) | payer OTHER ==
[~2020-05-31] VITALS: Ht 162.6 cm; Wt 74.8 kg
[~2020-05-31 17:08] MED LIST changes: +DIAMODE2 MG PO; +ONDANSETRON ODT4 MG BC
--- NOTE | 2020-05-31 17:45 | NUR ---
ED Nurse Note:pt. came from home with c/o left ribs pain, ambulatory with steady gait, VSS, given pain meds
[2020-05-31] MEDS: Methocarbamol 750mg tab ORAL ONE (17:47)
[2020-05-31] MEDS ORDERED: ROBAXIN-750750 MG PO (17:48)
[2020-05-31] MEDS ORDERED: IBUPROFEN600 M1 ORAL (17:48)
[2020-05-31] MEDS ORDERED: LIDODERM700 M1 TOPIC (17:48)
[2020-05-31] MEDS: Ketorolac 60mg Inj IM ONE (17:49)
--- NOTE | 2020-05-31 17:51 | Emergency Room Report ---
History of Present Illness General Chief Complaint: Pain Source: Patient Present Illness HPI 50-year-old female here with back pain. Patient says that for the past several days she has had left-sided upper back pain. She does not take any medication for the pain. No fevers, chills, headache, vision changes, chest pain, palpitation, shortness of breath, abdominal pain, nausea, vomiting, diarrhea, dysuria. Allergies: Coded Allergies: No Known Allergies (Unverified , 10/12/16) COVID-19 Screening Contact w/high risk pt: No Recent Travel to affected area: No Experienced COVID-19 symptoms?: Yes COVID-19 Testing performed [employer]: Yes COVID-19 Screening: Negative COVID-19 COVID-19 Testing Source: clinic Patient History Last Menstrual Period: last month Now: No Nursing Documentation-[facility] Past Medical History: No History, Except For Hx Hypertension: Yes Review of Systems All Other Systems: negative except mentioned in HPI Physical Exam Vital Signs Date Time Temp Pulse Resp B/P (MAP) Pulse Ox O2 Delivery O2 Flow Rate FiO2 05/31/20 17:18 98.4 62 18 135/86 (102) 97 Room Air Sp02 EP Interpretation: reviewed, normal General Appearance: no apparent distress, alert, non-toxic Head: normocephalic, atraumatic Eyes: bilateral eye normal inspection, bilateral eye PERRL ENT: hearing grossly normal, normal pharynx, no angioedema, normal voice Neck: full range of motion, supple/symm/no masses Respiratory: chest non-tender, lungs clear, normal breath sounds, speaking full sentences Cardiovascular #1: regular rate, rhythm, no edema Cardiovascular #2: 2+ carotid (R), 2+ carotid (L), 2+ radial (R), 2+ radial (L), 2+ dorsalis pedis (R), 2+ dorsalis pedis (L) Gastrointestinal: normal bowel sounds, non tender, soft, non-distended, no guarding, no rebound Rectal: deferred Genitourinary: normal inspection, no CVA tenderness Musculoskeletal: normal range of motion, gait/station normal, other - Tenderness on palpation of the left thoracic paraspinal muscles. No obvious trauma Neurologic: alert, motor strength/tone normal, oriented x3, sensory intact, responsive, speech normal Psychiatric: judgement/insight normal, memory normal, mood/affect normal, no suicidal/homicidal ideation Lymphatic: no adenopathy Medical Decision Making Diagnostic Impression: Primary Impression: Muscle strain ER Course 50-year-old female here with left upper back pain. Patient had pain on palpation of the left thoracic paraspinal muscles. She was given Toradol, Robaxin, Lidoderm patch with resolution of her symptoms. Given prescription for the same medications. Discharged in stable condition. Last Vital Signs Date Time Temp Pulse Resp B/P (MAP) Pulse Ox O2 Delivery O2 Flow Rate FiO2 05/31/20 17:18 98.4 62 18 135/86 (102) 97 Room Air Disposition: HOME, SELF-CARE Condition: Stable Scripts Lidocaine Patch* (Lidoderm Patch*) 1 Each Adh..patch 1 PATCH TOPIC DAILY, #30 PATCH Patch(es) may remain in place for up to 12 hours in any 24-hour period. Prov: Blaine Yang M.D. 05/31/20 Ibuprofen* (MOTRIN*) 600 Mg Tablet 600 MG ORAL Q6H PRN for FOR PAIN, #20 TAB 0 Refills Prov: Blaine Yang M.D. 05/31/20 Methocarbamol* (ROBAXIN-750*) 750 Mg Tablet 750 MG PO QID, #28 TAB 0 Refills Prov: Blaine Yang M.D. 05/31/20 Referrals: [facility] Blaine Yagn M.D. May 31, 2020 17:51
[2020-05-31 17:57] VITALS: BP 135/86
--- NOTE | 2020-05-31 17:57 | NUR ---
ED Nurse Note: Pt cleared by health care Provider for discharge. DC instructions/prescription was given and explained to pt and verbalized understanding of teachings. All medical deviecs such as ID band removed. Pt is AAO x4, ambulatory and left with all personal belongings.
[2020-05-31 17:59] VITALS: BP 135/86
[2020-05-31 19:06] LABS: APPEARANCE,URINE CLEAR; BILIRUBIN, URINE NEGATIVE (NEGATIVE); COLOR,URINE PALE YELLOW; GLUCOSE, URINE (UA) NEGATIVE (NEGATIVE); KETONES,URINE NEGATIVE (NEGATIVE); LEUKOCYTE ESTERASE ,URINE NEGATIVE (NEGATIVE); NITRITE,URINE NEGATIVE (NEGATIVE); PH,URINE 6 (4.5-8.0); PROTEIN,URINE NEGATIVE (NEGATIVE); UROBILINOGEN,URINE NORMAL MG/DL (0.0-1.0)
== END 2020-05-31 18:06 | disposition home or self-care (01) ==
LOC: EMR 17:35
DX: S29.012A Strain of muscle and tendon of back wall of thorax, initial encounter (principal); X58.XXXA Exposure to other specified factors, initial encounter; I10 Essential (primary) hypertension; Y93.9 Activity, unspecified; Y92.9 Unspecified place or not applicable
CPT/HCPCS: 81003; 96372; Z7502; 99283

== ENCOUNTER 2020-07-06 15:01 | Emergency (ER) | payer OTHER ==
[~2020-07-06] VITALS: Ht 167.6 cm; Wt 72.6 kg
[~2020-07-06 15:01] MED LIST changes: +IBUPROFEN600 M1 ORAL; +ROBAXIN-750750 MG PO
[2020-07-06 15:40] VITALS: BP 126/70
[2020-07-06] MEDS ORDERED: Ketorolac 30mg Inj IM ONE (15:45)
--- NOTE | 2020-07-06 16:01 | Emergency Room Report ---
History of Present Illness General Chief Complaint: Lower Back Pain or Injury Source: Patient Present Illness HPI 50 YO female presents to the ED c/o 02/07 in severity progressive onset of left sided upper back pain between the shoulder blades since last night. She denies trauma or fall. She reports that she has had approximately 3 episodes similar in the past. Patient denies lifting heavy objects as she says she is prone to back muscle injuries. She denies coughing, chest pain, hemoptysis, dizziness. Patient denies midline neck or back pain. She denies paresthesias. She denies loss of gross motor movements of any of the extremities. She reports twisting of her torso or reaching across with her left arm exacerbates her pain she reports resting without movement helps to alleviate her pain however as soon as she moves she feels her pain again. She states she is not taking any medications at home. 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 Patient History Past Medical History: see triage record Past Surgical History: none Pertinent Family History: none Now: No Reviewed Nursing Documentation: PMH: Agreed; PSxH: Agreed Nursing Documentation-PMH Past Medical History: No History, Except For Hx Hypertension: Yes Review of Systems All Other Systems: negative except mentioned in HPI Physical Exam Vital Signs Date Time Temp Pulse Resp B/P (MAP) Pulse Ox O2 Delivery O2 Flow Rate FiO2 07/06/20 15:08 98.8 75 18 126/70 (88) 95 Room Air Sp02 EP Interpretation: reviewed, normal General Appearance: no apparent distress, alert, GCS 15, non-toxic Head: normocephalic, atraumatic Eyes: bilateral eye normal inspection, bilateral eye PERRL ENT: hearing grossly normal, normal voice Neck: full range of motion Respiratory: chest non-tender, lungs clear, normal breath sounds, no wheezing, speaking full sentences Cardiovascular #1: regular rate, rhythm Gastrointestinal: non tender, soft Rectal: deferred Genitourinary: normal inspection, no CVA tenderness Musculoskeletal: back normal, normal range of motion, gait/station normal, tender - Mild-moderate Tenderness to palpation to Left paraspinal muscles of the thoracic back without midline tenderness. Neurologic: alert, motor strength/tone normal, oriented x3, sensory intact, responsive, speech normal Psychiatric: judgement/insight normal Skin: no rash, normal color Medical Decision Making PA Attestation Dr. Jensen is my supervising Physician whom patient management has been discussed with. Diagnostic Impression: Primary Impression: Muscle strain of left upper back Qualified Codes: S29.012A - Strain of muscle and tendon of back wall of thorax, initial encounter Additional Impression: Muscle spasm of back ER Course 50 YO female presents to the ED c/o 02/07 in severity progressive onset of left sided upper back pain between the shoulder blades since last night. She denies trauma or fall. She reports that she has had approximately 3 episodes similar in the past. Patient denies lifting heavy objects as she says she is prone to back muscle injuries. She denies coughing, chest pain, hemoptysis, dizziness. Patient denies midline neck or back pain. She denies paresthesias. She denies loss of gross motor movements of any of the extremities. She reports twisting of her torso or reaching across with her left arm exacerbates her pain she reports resting without movement helps to alleviate her pain however as soon as she moves she feels her pain again. She states she is not taking any medications at home. Denies rashes,bruising, fevers, or chills Ddx considered: PE, dissection, epidural abscess, fracture, sprain/strain, meningitis, spinal chord injury, sciatica, cauda equina, Pyelonephritis, renal c alculi just to name a few. Vital signs reviewed and are WNL during ED visit. Pt. is afebrile with no signs of infection No new symptoms, and denies recent trauma. No saddle anesthesia noted, Pt. denies incontinence Neurovascular is intact ROM is limited due to pain * Mild-moderate Tenderness to palpation to Left paraspinal muscles of the thoracic back without midline tenderness. ORDERS: none warranted at this time. INTERVENTIONS: - 20mg IM Toradol -Lidoderm TP DISCHARGE: At this time pt. is stable for d/c to home. Will provide printed patient care instructions, and any necessary prescriptions. Care plan and follow up instructions have been discussed with the patient prior to discharge. Last Vital Signs Date Time Temp Pulse Resp B/P (MAP) Pulse Ox O2 Delivery O2 Flow Rate FiO2 07/06/20 15:08 98.8 75 18 126/70 (88) 95 Room Air Status: improved Disposition: HOME, SELF-CARE Condition: Stable Scripts Ibuprofen* (MOTRIN*) 600 Mg Tablet 600 MG ORAL THREE TIMES A DAY, #20 TAB Prov: Samina Castillo 07/06/20 Lidocaine Patch* (Lidoderm Patch*) 1 Each Adh..patch 1 PATCH TOPIC DAILY, #30 PATCH 0 Refills Patch(es) may remain in place for up to 12 hours in any 24-hour period. Prov: Samina Castillo 07/06/20 Methocarbamol* (ROBAXIN-750*) 750 Mg Tablet 750 MG PO QID, #28 TAB 0 Refills Prov: Samina Castillo 07/06/20 Referrals: [facility],REFERRING (PCP) [facility]. [facility] [place] [facility] Patient Instructions: Back Pain, Adult Additional Instructions: Take medications as directed. ! Do not drink alcohol, drive, or operate heavy machinery while taking Robaxin ( Muscle Relaxers) as this may cause drowsiness. Follow up with a Primary Care Provider in 3-5 days, even if your symptoms have resolved. --Please review list of primary care clinics, if you do not already have a primary care provider Return sooner to ED if new symptoms occur, or current symptoms become worse. - Please note that this Emergency Department Report was dictated using [employer] tax consultant technology software, occasionally this can lead to erroneous entry secondary to interpretation by the dictation equipment. Samina Castillo Jul 06, 2020 16:01
[2020-07-06] MEDS ORDERED: IBUPROFEN600 M1 ORAL ×3 (16:25→16:33)
[2020-07-06] MEDS ORDERED: LIDODERM700 M1 TOPIC ×3 (16:25→16:33)
[2020-07-06] MEDS ORDERED: ROBAXIN-750750 MG PO ×3 (16:25→16:33)
[2020-07-06 16:50] VITALS: BP 132/70
== END 2020-07-06 16:30 | disposition home or self-care (01) ==
LOC: EMR 15:16
DX: S29.012A Strain of muscle and tendon of back wall of thorax, initial encounter (principal); M62.830 Muscle spasm of back; I10 Essential (primary) hypertension; X58.XXXA Exposure to other specified factors, initial encounter; Y93.9 Activity, unspecified; Y92.9 Unspecified place or not applicable
CPT/HCPCS: 96372; J1885; Z7502; 99283

== ENCOUNTER 2020-07-25 18:51 | Emergency (ER) | payer OTHER ==
[~2020-07-25] VITALS: Ht 162.6 cm; Wt 71.2 kg
--- NOTE | 2020-07-25 19:39 | NUR ---
back ache R sided since last night, now bilateral low back, took ibu and methocarbamol with no relief. pt denies trauma to area, denies falls. pt states pain with urination. pt denies nausea, vomiting, diarrhea. pt denies cough/fevers/chills. pt states hx htn, neck pain radiating to L arm. pt masked. pt states UMANZOR since last night.
--- NOTE | 2020-07-25 20:01 | Emergency Room Report ---
History of Present Illness General Chief Complaint: Back Pain-No Injury Source: Patient Present Illness HPI Patient is a 50-year-old female who presents for increased low back pain reports having onset of pain yesterday.. States has been having worsening pain with ambulation as well as with straightening position. Had been taking muscle relaxer without any improvement. Reports having some increased dysuria. Denies any flank pain. Had not been have any vomiting or diarrhea. Denies any lower abdominal pain. Patient states that she was bending forward at the time of onset and had persistent pain since then. 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 Patient History Past Medical History: see triage record Now: No Reviewed Nursing Documentation: PMH: Agreed; PSxH: Agreed Nursing Documentation-PMH Past Medical History: No History, Except For Hx Hypertension: Yes Review of Systems All Other Systems: negative except mentioned in HPI Physical Exam Vital Signs Date Time Temp Pulse Resp B/P (MAP) Pulse Ox O2 Delivery O2 Flow Rate FiO2 07/25/20 19:30 98.6 68 18 134/87 (103) 97 Room Air Sp02 EP Interpretation: reviewed, normal General Appearance: normal inspection, well appearing, no apparent distress, alert, GCS 15 Head: atraumatic ENT: normal ENT inspection, hearing grossly normal, normal voice Neck: normal inspection, full range of motion, supple, no bony tend Respiratory: normal inspection, lungs clear, normal breath sounds, no respiratory distress, no retraction, no wheezing Cardiovascular #1: regular rate, rhythm, no edema Gastrointestinal: normal inspection, normal bowel sounds, non tender, soft, no guarding, no hernia Genitourinary: no CVA tenderness Musculoskeletal: normal inspection, back normal, normal range of motion Neurologic: alert, responsive, speech normal, normal inspection Psychiatric: normal inspection, judgement/insight normal, mood/affect normal Medical Decision Making Diagnostic Impression: Primary Impression: Lumbar back pain ER Course Patient presents for low back pain. Differential diagnosis include was not limited to herniated disc, cervical spine stenosis, urinary tract infection among others. Because of complexity of patient's case laboratory tests and imaging studies were ordered.CT imaging read by radiology showed no acute pathology. See radiology report for full details. Patient was given de xamethasone as well as prescription for gabapentin. She is advised to follow-up with her primary care physician for recheck. She is advised to return if worse. This medical record is generated with [employer] unit secy software. There may be some unit secy discrepancies related to use of this software Labs Test 07/25/20 19:30 Urine Color Yellow Urine Appearance Clear Urine pH 6 (4.5-8.0) Urine Specific [place] 1.025 (1.005-1.035) Urine Protein Negative (NEGATIVE) Urine Glucose (UA) Negative (NEGATIVE) Urine Ketones Negative (NEGATIVE) Urine Blood 1+ (NEGATIVE) Urine Nitrite Negative (NEGATIVE) Urine Bilirubin Negative (NEGATIVE) Urine Urobilinogen Normal MG/DL (0.0-1.0) Urine Leukocyte Esterase 2+ (NEGATIVE) Urine RBC 2-4 /HPF (0 - 2) Urine WBC 0-2 /HPF (0 - 2) Urine Squamous Epithelial Cells Few /LPF (NONE/OCC) Urine Bacteria Occasional /HPF (NONE) Urine HCG, Qualitative Negative (NEGATIVE) Last Vital Signs Date Time Temp Pulse Resp B/P (MAP) Pulse Ox O2 Delivery O2 Flow Rate FiO2 07/25/20 19:30 98.6 68 18 134/87 (103) 97 Room Air Status: improved Disposition: HOME, SELF-CARE Condition: Stable Scripts Gabapentin* (NEURONTIN*) 400 Mg Capsule 400 MG ORAL TWICE A DAY, #20 CAP Prov: Timmy Jensen MD 07/25/20 Timmy Jensen MD Jul 25, 2020 20:01
[2020-07-25 20:06] LABS: APPEARANCE,URINE CLEAR; BILIRUBIN, URINE NEGATIVE (NEGATIVE); GLUCOSE, URINE (UA) NEGATIVE (NEGATIVE); KETONES,URINE NEGATIVE (NEGATIVE); LEUKOCYTE ESTERASE ,URINE 2+ (NEGATIVE); NITRITE,URINE NEGATIVE (NEGATIVE); PH,URINE 6 (4.5-8.0); PROTEIN,URINE NEGATIVE (NEGATIVE); UROBILINOGEN,URINE NORMAL MG/DL (0.0-1.0)
[2020-07-25 20:09] LABS: COLOR,URINE YELLOW
--- NOTE | 2020-07-25 20:54 | Diagnostic Imaging Report ---
EXAM: CT Lumbar Spine Without Intravenous Contrast CLINICAL HISTORY: PAIN TECHNIQUE: Axial computed tomography images of the lumbar spine without intravenous contrast. CTDI is 8.3 mGy and DLP is 259.5 mGy-cm. One or more of the following dose reduction techniques were used: automated exposure control, adjustment of the mA and/or kV according to patient size, use of iterative reconstruction technique. Coronal and sagittal reformatted images were created and reviewed. Axial reformatted images were created and reviewed. COMPARISON: No relevant prior studies available. FINDINGS: Vertebrae: Unremarkable. No acute fracture. Soft tissues: Unremarkable. DISCS/SPINAL CANAL/NEURAL FORAMINA: L1-L2: Unremarkable. No significant disc disease. No stenosis. L2-L3: Unremarkable. No significant disc disease. No stenosis. L3-L4: Unremarkable. No significant disc disease. No stenosis. L4-L5: Unremarkable. No significant disc disease. No stenosis. L5-S1: Unremarkable. No significant disc disease. No stenosis. Other findings: No significant canal or foraminal stenosis. No significant degenerative findings. IMPRESSION: 1. No acute abnormality definitively identified to account for patient presentation. 2. No significant canal or foraminal stenosis. 3. No significant degenerative findings. 4. Unremarkable study.
[2020-07-25] MEDS ORDERED: NEURONTIN400 MG ORAL (20:59)
[2020-07-25 21:13] VITALS: BP 134/87
== END 2020-07-25 21:10 | disposition home or self-care (01) ==
LOC: EMR 19:55
DX: M54.5 Low back pain (principal); I10 Essential (primary) hypertension
CPT/HCPCS: 72131; 81003; 81025; 96372; J1100; Z7502; 99284